=== PATIENT | female | born 1955 | race African-American/Black ===

== ENCOUNTER 2018-11-05 23:22 | Emergency (ER) | payer OTHER ==
[~2018-11-05] VITALS: Ht 170.2 cm; Wt 79.8 kg
[2018-11-05 23:36] VITALS: Ht 170.2 cm; Wt 79.8 kg
[2018-11-06 01:00] VITALS: BP 120/55
== END 2018-11-06 01:00 | disposition home or self-care (01) ==
LOC: ED 23:22
DX: S16.1XXA Strain of muscle, fascia and tendon at neck level, initial encounter (principal); M54.5 Low back pain; M25.511 Pain in right shoulder; M25.512 Pain in left shoulder; V48.5XXA Car driver injured in noncollision transport accident in traffic accident, initial encounter; Y93.I9 Activity, other involving external motion; Y92.411 Interstate highway as the place of occurrence of the external cause; Y99.8 Other external cause status
CPT/HCPCS: J1885